=== PATIENT | male | born 1990 | race Caucasian/White ===

== ENCOUNTER 2016-11-30 12:51 | Emergency (ER) | payer BC ==
[~2016-11-30] VITALS: Ht 170.2 cm; Wt 85.9 kg
[~2016-11-30 12:51] MED LIST changes: -AMOXICILLIN 8751 TAB PO; -VYVANSE50 MG PO; -ZOFRAN 4MG T4 MG/TAB PO
[2016-11-30 12:52] VITALS: BP 129/106; PULSE 88; TEMP 98.4
[2016-11-30] MEDS ORDERED: ZOFRAN 4MG T4 MG/TAB PO (12:56)
[2016-11-30] MEDS ORDERED: VYVANSE50 MG PO (12:56)
[2016-11-30] MEDS ORDERED: AMOXICILLIN 8751 TAB PO (12:56)
[2016-11-30 13:08] LABS: HEMATOCRIT 40.9 % (42.0-52.0); HEMOGLOBIN 13.9 g/dl (13.5-18.0); MEAN CELL VOLUME 84 fl (80.0-100.0); MEAN CORPUSCULAR HEMOGLOBIN 29 pg (27.0-31.0); MEAN CORPUSCULAR HGB CONC 34 g/dl (33.0-37.0); MEAN PLATELET VOLUME 9.9 fl (7.4-10.4); PLATELET COUNT 372 K/mm3 (130-400); RED BLOOD COUNT 4.86 M/mm3 (4.20-5.60); REDCELL DISTRIBUTION WIDTH-CV 12.4 % (11.5-14.5); WHITE BLOOD COUNT 12.7 K/mm3 (4.8-10.8)
[2016-11-30 13:19] LABS: ADJUSTED CALCIUM 9.1 mg/dL (8.4-10.2); ALBUMIN 4.6 gm/dL (3.5-5.0); BILIRUBIN,TOTAL 0.8 mg/dL (0.0-1.0); CALCIUM 9.6 mg/dL (8.4-10.2); CREATININE, serum 0.88 mg/dL (0.66-1.25); POTASSIUM 3.9 mmol/L (3.4-5.0)
[2016-11-30 13:57] LABS: INFLUENZA B NEGATIVE
== END 2016-11-30 14:20 | disposition home or self-care (01) ==
LOC: COL.ER 12:51
PROVIDERS: Emergency Medicine; Physician Assistant
DX: J32.9 Chronic sinusitis, unspecified (principal)

== ENCOUNTER → 2016-11-30 | Outpatient (CLI) | payer BC ==
[~2016-11-30] MED LIST: AMOXICILLIN 8751 TAB PO; NORCO 325 MG-51 TAB PO; VYVANSE50 MG PO; ZOFRAN 4MG T4 MG/TAB PO
== END ==
LOC: COL.LAB 12:32
DX: A08.4 Viral intestinal infection, unspecified (principal)

== ENCOUNTER → 2016-12-18 | Outpatient (CLI) | payer BC ==
[~2016-12-18] MED LIST changes: +AMOXICILLIN 8751 TAB PO; +VYVANSE50 MG PO; +ZOFRAN 4MG T4 MG/TAB PO
== END ==
LOC: BHSO 10:06
DX: F90.0 Attention-deficit hyperactivity disorder, predominantly inattentive type (principal)

== ENCOUNTER 2019-04-14 14:29 | Emergency (ER) | payer OTHER ==
[~2019-04-14] VITALS: Ht 172.7 cm; Wt 70.5 kg
[2019-04-14 14:37] VITALS: TEMP 98.6
[2019-04-14 15:36] LABS: BASO % 0.1 % (0.0-2.0); EOS # 0.1 (0.0-0.7); EOS % 0.8 % (0-4.0); GRAN # 4.9 (1.4-6.5); GRAN % 65.4 % (42.2-75.2); HEMATOCRIT 39.4 % (42.0-52.0); HEMOGLOBIN 13.3 g/dl (13.5-18.0); LYMPH # 1.5 (1.2-3.4); LYMPH % 20.1 % (20.0-51.0); MEAN CELL VOLUME 85 fl (80.0-100.0); MEAN CORPUSCULAR HEMOGLOBIN 29 pg (27.0-31.0); MEAN CORPUSCULAR HGB CONC 34 g/dl (33.0-37.0); MEAN PLATELET VOLUME 9.7 fl (7.4-10.4); MONO % 13.3 % (1.7-9.3); PLATELET COUNT 247 K/mm3 (130-400); RED BLOOD COUNT 4.62 M/mm3 (4.20-5.60); REDCELL DISTRIBUTION WIDTH-CV 12.2 % (11.5-14.5)
[2019-04-14 15:44] LABS: ALBUMIN 3.9 gm/dL (3.5-5.0); BILIRUBIN,TOTAL 0.6 mg/dL (0.0-1.0); C-REACTIVE PROTEIN 2.7 mg/dL (0.0-0.9); CALCIUM 8.9 mg/dL (8.4-10.2); CREATININE, serum 0.94 (0.66-1.25); POTASSIUM 4.2 mmol/L (3.4-5.0); TOTAL PROTEIN 6.9 gm/dL (6.4-8.2)
[2019-04-14 15:46] LABS: COLLECTION METHOD CLEAN CATCH
[2019-04-14 15:53] LABS: MUCOUS Present /lpf; PH 5 (5-8); SQUAMOUS EPITHELIAL None Seen /hpf; URINE APPEARANCE Clear; URINE BACTERIA None Seen /hpf; URINE BILIRUBIN Negative (NEGATIVE); URINE BLOOD 1+ (NEGATIVE); URINE COLOR Yellow; URINE GLUCOSE Negative (NEGATIVE); URINE KETONE Trace (NEGATIVE); URINE LEUKOCYTE ESTERASE Negative (NEGATIVE); URINE NITRATE Negative (NEGATIVE); URINE PROTEIN(semi-quant) Negative (NEGATIVE); URINE RBC 0-2 /hpf; URINE UROBILINOGEN Negative (NEGATIVE)
[2019-04-14] MEDS ORDERED: ZOFRAN ODT4 MG PO (18:16)
[2019-04-14 18:21] VITALS: BP 111/77; PULSE 72
== END 2019-04-14 18:26 | disposition home or self-care (01) ==
LOC: COL.ER 14:29
PROVIDERS: Emergency Medicine
DX: A08.32 Astrovirus enteritis (principal); R10.10 Upper abdominal pain, unspecified
CPT/HCPCS: J1170; J2405; J7030; Q9967